=== PATIENT | female | born 1990 | race Caucasian/White ===

== ENCOUNTER 2019-01-17 19:34 | Emergency (ER) | payer OTHER ==
[~2019-01-17] VITALS: Ht 172.7 cm; Wt 79.0 kg
[2019-01-17 20:14] VITALS: Ht 172.7 cm; Wt 79.0 kg
--- NOTE | 2019-01-18 04:23 | ERD ---
ER Documentation Chief Complaint Chief Complaint THYROIDECTOMY, PMD SENT D/T TO HYPERTHYROID LEVELS UPON BLOOD DRAW HPI Is a 28-year-old female comes in because of abnormal thyroid levels. She is status post thyroidectomy. Denies fevers chills nausea vomiting denies any complaints but denies any current issues. ROS All systems reviewed and are negative except as per history of present illness. Medications Home Meds No Active Prescriptions or Reported Meds Allergies Allergies: Coded Allergies: No Known Allergy (Unverified , 01/18/19) PMhx/Soc History of Surgery: Yes (THYROIDECTOMY, TONSILLECTOMY) Anesthesia Reaction: No Hx Neurological Disorder: No Hx Respiratory Disorders: No Hx Cardiac Disorders: No Hx Psychiatric Problems: No Hx Miscellaneous Medical Probl: No Hx Alcohol Use: Yes Hx Substance Use: Yes Hx Tobacco Use: No Smoking Status: Never smoker Physical Exam Vitals Vital Signs Date Temp Pulse Resp B/P (MAP) Pulse Ox O2 O2 Flow FiO2 Time Delivery Rate 01/18/19 73 18 110/87 100 Room Air 02:21 (95) 01/17/19 98.4 87 18 98/64 (75) 100 20:14 Physical Exam Const: No acute distress Head: Atraumatic Eyes: Normal Conjunctiva ENT: Normal External Ears, Nose and Mouth. Neck: Full range of motion. No meningismus. Resp: Clear to auscultation bilaterally Cardio: Regular rate and rhythm, no murmurs Abd: Soft, non tender, non distended. Normal bowel sounds Skin: No petechiae or rashes Back: No midline or flank tenderness Ext: No cyanosis, or edema Neur: Awake and alert Psych: Normal Mood and Affect Result Diagram: 01/18/19 0226 01/18/19 0226 Results 24 hrs Laboratory Tests Test 01/18/19 02:26 White Blood Count 11.3 10^3/ul Red Blood Count 3.13 10^6/ul Hemoglobin 7.8 g/dl Hematocrit 25.5 % Mean Corpuscular Volume 81.5 fl Mean Corpuscular Hemoglobin 24.9 pg Mean Corpuscular Hemoglobin Concent 30.6 g/dl Red Cell Distribution Width 19.0 % Platelet Count 249 10^3/UL Mean Platelet Volume 10.6 fl Immature Granulocytes % 0.400 % Neutrophils % 59.8 % Lymphocytes % 28.4 % Monocytes % 9.5 % Eosinophils % 1.2 % Basophils % 0.7 % Nucleated Red Blood Cells % 0.0 /100WBC Immature Granulocytes # 0.040 10^3/ul Neutrophils # 6.8 10^3/ul Lymphocytes # 3.2 10^3/ul Monocytes # 1.1 10^3/ul Eosinophils # 0.1 10^3/ul Basophils # 0.1 10^3/ul Nucleated Red Blood Cells # 0.0 10^3/ul Urine Color RED Urine Clarity CLOUDY Urine pH 6.0 Urine Specific [place] 1.033 Urine Ketones TRACE mg/dL Urine Nitrite NEGATIVE mg/dL Urine Bilirubin NEGATIVE mg/dL Urine Urobilinogen 2+ mg/dL Urine Leukocyte Esterase NEGATIVE Ofe/ul Urine Microscopic RBC > 182 /HPF Urine Microscopic WBC 4 /HPF Urine Squamous Epithelial Cells FEW /HPF Urine Mucus MANY /HPF Urine Hemoglobin 3+ mg/dL Urine Glucose NEGATIVE mg/dL Urine Total Protein 2+ mg/dl Sodium Level 142 mmol/L Potassium Level 4.6 mmol/L Chloride Level 107 mmol/L Carbon Dioxide Level 25 mmol/L Anion Gap 10 Blood Urea Nitrogen 15 mg/dl Creatinine 0.94 mg/dl Est Glomerular Filtrat Rate mL/min > 60 mL/min Glucose Level 103 mg/dl Calcium Level 9.3 mg/dl Total Bilirubin 0.5 mg/dl Direct Bilirubin 0.00 mg/dl Indirect Bilirubin 0.5 mg/dl Aspartate Amino Transf (AST/SGOT) 34 IU/L Alanine Aminotransferase (ALT/SGPT) 20 IU/L Alkaline Phosphatase 76 IU/L Total Protein 9.0 g/dl Albumin 4.7 g/dl Globulin 4.30 g/dl Albumin/Globulin Ratio 1.09 Lipase 126 U/L Thyroid Stimulating Hormone (TSH) Pending Free Thyroxine Index 0.17 ug/ml Thyroxine (T4) 0.7 ug/dl Triiodothyronine (T3) Uptake 24.9 % Procedures/MDM Medical assessment: 28-year female is globally hypothyroid, which has no evidenc e of myxedema coma. Patient at this point is clinically stable for outpatient management patient be started on levothyroxine. She is to follow-up with her primary care physician for medication adjustment. Return for worsening symptoms. Departure Diagnosis: Primary Impression: Hypothyroidism Hypothyroidism type: unspecified Qualified Codes: E03.9 - Hypothyroidism, unspecified Condition: Stable REESE ALCALA Jan 18, 2019 04:23
[2019-01-18 04:30] VITALS: BP 115/82; PULSE 75; RESP 20
== END 2019-01-18 05:00 | disposition home or self-care (01) ==
LOC: E/R 19:34
DX: E03.9 Hypothyroidism, unspecified (principal)
CPT/HCPCS: 36415; 80053; 81001; 83690; 84436; 84443; 84479; 85025; 99283